=== PATIENT | female | born 1960 | race Caucasian/White ===

== ENCOUNTER 2019-06-18 10:00 | Emergency (ER) | payer OTHER, MEDICAID ==
[~2019-06-18] VITALS: Ht 157.5 cm; Wt 104.3 kg
[2019-06-18 10:02] VITALS: BP_SYST 117
--- NOTE | 2019-06-18 10:02 | NUR ---
Placed in room 2 . Placed on surgical supplies sterilizer, blood pressure machine and pulse oximeter. To gown for exam. Side rails up. Report given to [facility].
--- NOTE | 2019-06-18 10:10 | NUR ---
MD WILLIAM AT BEDSIDE. PLACED RHINO ROCKET INTO THE LEFT NOSTRIL.
--- NOTE | 2019-06-18 10:18 | NUR ---
RN HAS ASSESSED PT. PT IS ALERT AND ORIENTED, STABLE. BLEEDING IS STOPPED AT THIS TIME. RN NOTES PT IS ON WARFARIN AND LOVENOX FOR HER PAST MEDICAL CONDITIONS.
[2019-06-18 10:40] LABS: BASOPHILS # (AUTO) 0.1 K/uL (0.0-0.2); BASOPHILS % (AUTO) 0.9 % (0.0-2.0); EOSINOPHILS # (AUTO) 0.1 K/uL (0.0-0.4); EOSINOPHILS % (AUTO) 1.5 % (0.0-4.0); HEMATOCRIT 38.8 % (36-48); HEMOGLOBIN 12.9 g/dL (12.0-16.0); LYMPHOCYTES # (AUTO) 1.6 K/uL (1.0-5.5); LYMPHOCYTES % (AUTO) 24.4 % (20.5-51.5); MEAN CORPUSCULAR HEMOGLOBIN 31 pg (27-31); MEAN CORPUSCULAR HGB CONC 33 % (32-36); MEAN CORPUSCULAR VOLUME 93 fL (79.0-98.0); MONOCYTES # (AUTO) 0.4 K/uL (0.0-1.0); MONOCYTES % (AUTO) 5.8 % (1.7-9.3); NEUTROPHILS # (AUTO) 4.4 K/uL (1.8-7.7); NEUTROPHILS % (AUTO) 67.4 % (40.0-70.0); PLATELET COUNT (AUTO) 252 K/uL (130-430); RED BLOOD CELL COUNT(AUTO) 4.17 MIL/uL (4.2-6.2); RED CELL DISTRIBUTION WIDTH 14.7 % (9.0-15.0); WHITE BLOOD COUNT (AUTO) 6.5 K/uL (4.8-10.8)
[2019-06-18 10:56] LABS: INR 1.9 (0.8-1.2); PROTHROMBIN TIME 18.9 SECS (9.5-12.5)
[2019-06-18 11:05] LABS: ALBUMIN 3.4 g/dL (3.4-4.8); CALCIUM 8.9 mg/dL (8.4-11.0); CREATININE 0.65 mg/dL (0.55-1.30); POTASSIUM 3.8 mmol/L (3.5-5.1); TOTAL BILIRUBIN 0.7 mg/dL (0.0-1.0)
--- NOTE | 2019-06-18 11:41 | NUR ---
PT CONTINUES TO REST WELL, AND BLEEDING HAS SUBSIDED. NO BLEEDING IN ER.
--- NOTE | 2019-06-18 12:08 | NUR ---
PT IS BEING PREPARED FOR DC BACK TO [facility]. [facility] IS CALLING FOR TRANSPORT NOW.
--- NOTE | 2019-06-18 13:07 | NUR ---
Patient given written and verbal discharge instructions and verbalizes understanding. ER MD discussed with patient the results and treatment provided. Patient in stable condition. ID arm band removed. Rx of KEEPING THE RHINO ROCKET IN FOR 2 DAYS given. Patient educated on pain management and to follow up with PMD. Pain Scale . Opportunity for questions provided and answered. Medication side effect fact sheet provided.
[2019-06-18 13:09] VITALS: BP_SYST 134
== END 2019-06-18 13:09 | disposition home or self-care (01) ==
LOC: SED 10:00
DX: D68.62 Lupus anticoagulant syndrome (principal); R04.0 Epistaxis; J44.9 Chronic obstructive pulmonary disease, unspecified; K21.9 Gastro-esophageal reflux disease without esophagitis; E11.9 Type 2 diabetes mellitus without complications; K59.00 Constipation, unspecified; Z86.711 Personal history of pulmonary embolism; Z86.718 Personal history of other venous thrombosis and embolism; Z88.1 Allergy status to other antibiotic agents; Z88.6 Allergy status to analgesic agent
CPT/HCPCS: 36415; 80053; 85025; 85610-TC; 85730-TC; 99284